=== PATIENT | female | born 1960 | race Caucasian/White ===

== ENCOUNTER 2016-09-11 20:04 | Emergency (ER) | payer MEDICAID ==
--- NOTE | ~2016-09-11 | CT71 ---
[facility] A Service of [facility] RADIOLOGY TEXT RESULTS PATIENT: ADIEL COPPOLA LOCATION: [place] : 60 UNIT #: [id number] AGE: [address]: Seng Espinoza MD SEX: F ORDER DR: [id number] [place], [place] [address] [id number] E MR#: [id number] Acc #: [id number] NAME: ADIEL COPPOLA : 1960 SEX: F STUDY DATE/TIME: 09/11/2016 23:04 UNIT: [place] ROOM: STUDY DESCRIPTION: CT Head Wo Contrast Attending Physician: Seng Espinoza M.D. Ordering Physician: Seng Espinoaz M.D. Primary Care Physician: Stepan Medrano M.D. MEDICAL IMAGING REPORT This report is preliminary unless electronic signature is present EXAM CT head, noncontrast, 09/11/2016. HISTORY 56-year-old female in the ED complaining of sharp left side headache beginning [address] examination of the head was performed without IV contrast. This CT exam was performed with one or more of the following radiation dose reduction techniques: automatic exposure control, adjustment of mA and/or kV according to patient size, and iterative reconstruction. FINDINGS The examination is negative. No evidence of intracranial hemorrhage, mass, mass effect, cerebral edema, hydrocephalus, or additional abnormality. IMPRESSION Negative noncontrast head CT examination. Dictated by... Stepan Davis M.D. THIS IS AN ELECTRONICALLY VERIFIED REPORT Stepan Davis M.D. at 09/12/2016 9:55 PM RGW/paul TD: 09/12/2016 09:53 JOB #: [id number] [facility] A Service [facility] RADIOLOGY TEXT RESULTS PATIENT: ADIEL COPPOLA LOCATION: [place] : 60 UNIT #: [id number] AGE: [address]: Seng Espinoza MD SEX: F ORDER DR: MEDICAL IMAGING REPORT Page 1 of 1 COPY
[~2016-09-11 20:04] MED LIST: ALBUTEROL17 GM; ALEVE220 M1 PO; ANEXSIA 5/325 M1 TA1 PO; BACLOFEN10 MG; CORICIDIN HBP F1 TAB; DOXYCYCLINE PO; FLEXERIL10 MG PO; IBUPROFEN; MUCINEX1200 MG/BO; NAPROXEN; ROBITUSSIN A-C-S1 ML
[2016-09-11 21:42] LABS: BASOPHIL# 0.1 X10e3 (0-0.3); BASOPHIL% 0.8 % (0-2.5); EOSINOPHIL# 0.2 X10e3 (0-0.7); EOSINOPHIL% 1.6 % (0.0-7.0); HEMATOCRIT 44.2 % (35.0-45.0); HEMOGLOBIN 14.5 gm/dL (12.0-16.0); LYMPHOCYTE# 3.6 X10e3 (1.0-3.5); LYMPHOCYTE% 35.6 % (17.0-45.0); MEAN CELL VOLUME 89.9 FL (83-96); MEAN CORPUSCULAR HEMOGLOBIN 29.5 PG (28-34); MEAN CORPUSCULAR HGB CONC 32.8 g/dL (30-36); MEAN PLATELET VOLUME 9.8 FL (6.5-11.5); MONOCYTE# 0.7 X10e3 (0-1.0); NEUTROPHIL# 5.6 X10e3 (1.5-7.1); PLATELET COUNT 217 X10e3 (140-420); RED BLOOD COUNT 4.92 X10e (3.90-5.30); RED CELL DISTRIBUTION WIDTH 13.9 % (11.0-15.5); WHITE BLOOD COUNT 10.2 X10e3 (4.0-10.5)
[2016-09-11 21:49] LABS: DIFF IND NO
[2016-09-11 22:16] LABS: BUN/CREATININE RATIO 15.55; CALCIUM SERUM 9.4 mg/dL (8.4-10.2); CREATININE SERUM 0.9 mg/dL (0.6-1.4); GLOM FILT RATE Estimated 71.5 mL/min (>60); POTASSIUM 3.4 mmol/L (3.5-5.1)
== END 2016-09-12 00:10 | disposition home or self-care (01) ==
LOC: CED 20:04
PROVIDERS: Emergency Medicine
DX: R51 Headache (principal); F17.210 Nicotine dependence, cigarettes, uncomplicated
CPT/HCPCS: 36415; 70450; 80048; 85025; 96374; 96375; 99284; J1200; J1885; J2765

== ENCOUNTER 2016-10-20 10:54 | Emergency (ER) | payer MEDICAID ==
--- NOTE | ~2016-10-20 | EKG ---
PATIENT: ADIEL COPPOLA UNIT #: [id number] Ventricular Rate: 100 BPM Atrial Rate: 100 BPM P-R Interval: 146 ms QRS Duration: 70 ms Q-T Interval: 362 ms QTC Calculation(Bezet): 466 ms P [place]: 80 degrees Calculated R [place]: 3 degrees Calculated T [place]: 51 degrees Diagnosis Line: Normal sinus rhythm Diagnosis Line: Nonspecific ST abnormality Diagnosis Line: Abnormal ECG Diagnosis Line: When compared with ECG of 27-NOV-2012 09:22, Diagnosis Line: No significant change was found Diagnosis Line: Confirmed by SUKUMAR GARRETT MD ([id number]) on Diagnosis Line: 10/22/2016 9:01:38 AM INTERPRETING MD: GERRY MAOSN
[2016-10-20 11:23] LABS: POC - CKMB <1.0 ng/mL (0.0-7.9); POC - TROPONIN <0.05 ng/mL (<=0.05)
[2016-10-20 11:27] LABS: BASOPHIL# 0.1 X10e3 (0-0.3); BASOPHIL% 0.7 % (0-2.5); EOSINOPHIL# 0.1 X10e3 (0-0.7); EOSINOPHIL% 1.1 % (0.0-7.0); HEMATOCRIT 42.6 % (35.0-45.0); HEMOGLOBIN 14.3 gm/dL (12.0-16.0); LYMPHOCYTE# 2.1 X10e3 (1.0-3.5); LYMPHOCYTE% 26.4 % (17.0-45.0); MEAN CELL VOLUME 90.8 FL (83-96); MEAN CORPUSCULAR HEMOGLOBIN 30.4 PG (28-34); MEAN CORPUSCULAR HGB CONC 33.5 g/dL (30-36); MONOCYTE# 0.4 X10e3 (0-1.0); MONOCYTE% 5.1 % (3.0-12.0); NEUTROPHIL# 5.2 X10e3 (1.5-7.1); NEUTROPHIL% 66.7 % (40-75); PLATELET COUNT 216 X10e3 (140-420); RED CELL DISTRIBUTION WIDTH 14.1 % (11.0-15.5); WHITE BLOOD COUNT 7.8 X10e3 (4.0-10.5)
[2016-10-20 11:29] LABS: DIFF IND NO
[2016-10-20 11:44] LABS: ALBUMIN SERUM 4.6 g/dL (3.5-5.0); BILIRUBIN,TOTAL 0.6 mg/dL (0.2-2.0); BUN/CREATININE RATIO 13.75; CALCIUM SERUM 8.5 mg/dL (8.4-10.2); CREATININE SERUM 0.8 mg/dL (0.6-1.4); GLOM FILT RATE Estimated 82.5 mL/min (>60); POTASSIUM 3.3 mmol/L (3.5-5.1); PROTEIN TOTAL SERUM 7.4 g/dL (6.0-8.3)
[2016-10-20 12:40] LABS: POC - CKMB <1.0 ng/mL (0.0-7.9); POC - TROPONIN <0.05 ng/mL (<=0.05)
== END 2016-10-20 13:16 | disposition home or self-care (01) ==
LOC: SED 10:54
PROVIDERS: Emergency Medicine
DX: R07.9 Chest pain, unspecified (principal); F41.9 Anxiety disorder, unspecified; F17.210 Nicotine dependence, cigarettes, uncomplicated
CPT/HCPCS: 36415; 80053; 82553; 84484; 85025; 85379; 93005; 96374; 99285

== ENCOUNTER 2016-10-26 01:07 | Emergency (ER) | payer MEDICAID ==
[~2016-10-26] VITALS: Ht 160 cm; Wt 73.0 kg
--- NOTE | ~2016-10-26 | EKG ---
PATIENT: ADIEL COPPOLA UNIT #: [id number] Ventricular Rate: 63 BPM Atrial Rate: 63 BPM P-R Interval: 154 ms QRS Duration: 80 ms Q-T Interval: 416 ms QTC Calculation(Bezet): 425 ms P [place]: 45 degrees Calculated R [place]: 7 degrees Calculated T [place]: 28 degrees Diagnosis Line: Normal sinus rhythm Diagnosis Line: Normal ECG Diagnosis Line: When compared with ECG of 20-OCT-2016 10:58, Diagnosis Line: Vent. rate has decreased BY 37 BPM Diagnosis Line: Confirmed by SUKUMRA GARRETT MD ([id number]) on Diagnosis Line: 10/26/2016 3:50:39 PM INTERPRETING MD: GERRY MASON
[2016-10-26] MEDS ORDERED: BENADRYL25 M1 PO (02:28)
== END 2016-10-26 02:31 | disposition home or self-care (01) ==
LOC: SED 01:07
DX: T44.7X5A Adverse effect of beta-adrenoreceptor antagonists, initial encounter (principal)
CPT/HCPCS: 93005; 99283

== ENCOUNTER 2016-10-29 08:24 | Emergency (ER) | payer MEDICAID ==
--- NOTE | ~2016-10-29 | EKG ---
PATIENT: ADIEL COPPOLA UNIT #: [id number] Ventricular Rate: 82 BPM Atrial Rate: 82 BPM P-R Interval: 128 ms QRS Duration: 78 ms Q-T Interval: 398 ms QTC Calculation(Bezet): 464 ms P [place]: 80 degrees Calculated R [place]: 14 degrees Calculated T [place]: 43 degrees Diagnosis Line: Normal sinus rhythm Diagnosis Line: Normal ECG Diagnosis Line: When compared with ECG of 26-OCT-2016 01:42, Diagnosis Line: No significant change was found Diagnosis Line: Confirmed by SUKUMAR GARRETT MD ([id number]) on Diagnosis Line: 11/03/2016 8:38:17 AM INTERPRETING MD: GERRY MASON
--- NOTE | ~2016-10-29 | CR72 ---
[facility] A Service of [facility] RADIOLOGY TEXT RESULTS PATIENT: ADIEL COPPOLA LOCATION: [place] : 60 UNIT #: [id number] AGE: [address]: Memo Somers MD SEX: F ORDER DR: [id number] [address] [address] [id number] E MR#: [id number] Acc #: [id number] NAME: ADIEL COPPOLA : 1960 SEX: F STUDY DATE/TIME: 10/29/2016 8:50 UNIT: SED ROOM: STUDY DESCRIPTION: CR Chest Single View Portable Attending Physician: Memo Somers M.D. Ordering Physician: Memo Somers M.D. Primary Care Physician: Stepan Medrano M.D. MEDICAL IMAGING REPORT This report is preliminary unless electronic signature is present. EXAM Portable chest 10/29/2016. HISTORY 56-year-old female with chest pain beginning yesterday. COMPARISON Comparison chest 07/22/2014 FINDINGS Frontal chest demonstrates clear lungs. No pleural effusion or pneumothorax. Heart size and mediastinum within normal limits. Pulmonary vasculature unremarkable. IMPRESSION No acute cardiopulmonary findings. Dictated by... Huber Huynh M.D. THIS IS AN ELECTRONICALLY VERIFIED REPORT Huber Huynh M.D. at 11/01/2016 1:16 PM Yennifer TD: 10/29/2016 10:59 JOB #: [id number] MEDICAL IMAGING REPORT Page 1 of 1
[~2016-10-29 08:24] MED LIST changes: +BENADRYL25 M1 PO
[2016-10-29] MEDS ORDERED: OMEPRAZOLE20 M2 PO (08:36)
[2016-10-29 09:09] LABS: BASOPHIL# 0.1 X10e3 (0-0.3); BASOPHIL% 0.9 % (0-2.5); DIFF IND NO; EOSINOPHIL# 0.1 X10e3 (0-0.7); EOSINOPHIL% 0.8 % (0.0-7.0); HEMOGLOBIN 14.2 gm/dL (12.0-16.0); LYMPHOCYTE# 1.8 X10e3 (1.0-3.5); LYMPHOCYTE% 19.2 % (17.0-45.0); MEAN CELL VOLUME 89.9 FL (83-96); MEAN CORPUSCULAR HEMOGLOBIN 30.3 PG (28-34); MEAN CORPUSCULAR HGB CONC 33.7 g/dL (30-36); MEAN PLATELET VOLUME 9.1 FL (6.5-11.5); MONOCYTE# 0.6 X10e3 (0-1.0); MONOCYTE% 6.8 % (3.0-12.0); NEUTROPHIL# 6.8 X10e3 (1.5-7.1); NEUTROPHIL% 72.3 % (40-75); PLATELET COUNT 237 X10e3 (140-420); RED BLOOD COUNT 4.67 X10e (3.90-5.30); RED CELL DISTRIBUTION WIDTH 13.5 % (11.0-15.5); WHITE BLOOD COUNT 9.5 X10e3 (4.0-10.5)
[2016-10-29 09:25] LABS: POC - CKMB <1.0 ng/mL (0.0-7.9); POC - TROPONIN <0.05 ng/mL (<=0.05)
[2016-10-29 09:26] LABS: CALCIUM SERUM 9.2 mg/dL (8.4-10.2); CREATININE SERUM 0.8 mg/dL (0.6-1.4); GLOM FILT RATE Estimated 82.5 mL/min (>60)
== END 2016-10-29 10:59 | disposition home or self-care (01) ==
LOC: SED 08:24
PROVIDERS: Emergency Medicine
DX: R07.89 Other chest pain (principal); R00.2 Palpitations; F41.9 Anxiety disorder, unspecified; I10 Essential (primary) hypertension; K21.9 Gastro-esophageal reflux disease without esophagitis; F17.210 Nicotine dependence, cigarettes, uncomplicated; Z79.899 Other long term (current) drug therapy
CPT/HCPCS: 71010; 80048; 82553; 84484; 85025; 93005; 99285